=== PATIENT | female | born 1995 | race Caucasian/White ===

== ENCOUNTER → 2020-07-30 16:01 | Outpatient (CLI) | payer OTHER, SELFPAY ==
[2020-07-31 07:44] LABS: COVID19 Sendout Not Detected (Not Detect)
== END ==
PROVIDERS: Visit Provider Physician Assistant
DX: Z11.59 Encounter for screening for other viral diseases (principal)
CPT/HCPCS: 87635

== ENCOUNTER → 2020-08-02 14:49 | Outpatient (CLI) | payer OTHER, SELFPAY ==
--- NOTE | 2020-08-10 15:50 | PM.PFT.1 ---
Pulmonary Function Test Referral & Results Date Patient Seen: 08/02/20 Requesting provider: Chad Cummings Results: The spirometry demonstrates an FVC of 3.54 L which is 93% of predicted. The FEV1 was measured at 3.20 L which is 99% of predicted. The FEV1/FVC ratio was 91 which is 106% of predicted. Following the administration of bronchodilator there was no appreciable change to above normal numbers. Lung volumes show an SVC of 3.11 L which is 83% of predicted. The diffusing capacity was measured at 23.26 which is 95% of predicted. The maximum voluntary ventilation was normal Interpretation: This study demonstrates probably normal pulmonary function. There may be minimal reduction in lung volumes suggesting perhaps minimal restrictive lung disease but overall I would call this normal.
== END ==
PROVIDERS: Referring Provider Family Medicine; Visit Provider Family Medicine
DX: R05 Cough (principal); R06.2 Wheezing; R06.02 Shortness of breath
CPT/HCPCS: 94060; 94726; 94729

== ENCOUNTER → 2021-05-07 09:08 | Outpatient (CLI) | payer OTHER, SELFPAY ==
--- NOTE | 2021-05-07 | DI.US.S_ITS ---
PROCEDURE: US OB <= 14 WEEKS FETUS INDICATIONS: INITIAL SIZE AND DATING OUTSIDE/PRIOR DATING DATA: Last menstrual period (LMP): 03/13/2021. LMP-based estimated date of delivery (DARREL): 12/18/2021. First dating scan (date and location): 05/07/2021. Estimated date of delivery (DARREL) from first dating scan: 12/20/2021. TECHNIQUE: Real-time scanning was performed of the fetus and maternal pelvic organs, with image documentation. Endovaginal scanning was also performed to better visualize the fetus and maternal ovaries. COMPARISON: None. FINDINGS: Embryo: A single living intrauterine gestation is present with a heart rate of 150 beats per minute. [place]-rump length is 14 mm, corresponding to a 7 week 4 day gestation. Heart rate: 150 beats per minute Measurement variability in dating: +/- 4 weeks by LMP, +/- 7 days by mean sac diameter (use before 6 weeks gestation if crown-rump length not able to be measured), +/- 5 days by crown-rump length (up to 8 weeks 6 days gestation), +/- 7 days by crown-rump length (up to 13 weeks 6 days gestation). Maternal organs: Corpus luteal cyst on the right ovary. Left ovary within normal limits. IMPRESSION: 1. Single living early intrauterine gestation. Dictated by: Robb Young M.D. on 05/07/2021 at 11:33 Approved by: Robb Young M.D. on 05/07/2021 at 11:34
== END ==
PROVIDERS: PCP Family Medicine; Referring Provider Family Medicine; Visit Provider Family Medicine
DX: O34.81 Maternal care for other abnormalities of pelvic organs, first trimester (principal); N83.11 Corpus luteum cyst of right ovary; Z3A.01 Less than 8 weeks gestation of pregnancy
CPT/HCPCS: 76801; 76817

== ENCOUNTER → 2021-08-01 15:37 | Outpatient (CLI) | payer OTHER, SELFPAY ==
--- NOTE | 2021-08-01 15:41 | DI.US.S_ITS ---
PROCEDURE: US OB >= 14 WEEKS FETUS INDICATIONS: 20 week scan OUTSIDE/PRIOR DATING DATA: Last menstrual period (LMP): 03/13/2021 . LMP-based estimated date of delivery (DARREL): 12/18/2021 . First dating scan (date and location): 05/07/2021 . Estimated date of delivery (DARREL) from first dating scan: 12/20/2021 . TECHNIQUE: Real-time scanning was performed of the fetus, with image documentation and biometric measurements. COMPARISON: 05/07/2021 FINDINGS: General: A single living intrauterine gestation is present. Presentation: Variable Placenta: Placental position is anterior , without previa. Amniotic fluid index: 17.4 cm cm, normal range is 5-24 cm. heart rate: 145 beats per minute. Maternal cervical canal: 4.7 cm long. Normal lower limit is 2.5 cm. biometrics: Biparietal diameter: 4.7 cm 20 weeks 1 day Head circumference: 17.6 cm 20 weeks 0 days Abdominal circumference: 13.9 cm 19 weeks 2 days Femur length: 3.0 cm 19 weeks 2 days Estimated gestational age from initial scan: 19 weeks 6 days Composite gestational age from present scan: 19 weeks 5 days Estimated weight and percentile: 290 g, 22nd percentile Measurement variability for biometric dating: +/- 7 days from 14 weeks to 15 weeks 6 days gestation, +/- 10 days from 16 weeks to 21 weeks 6 days gestation, +/- 2 weeks from 22 weeks to 27 weeks 6 days gestation, +/- 3 weeks for 28 weeks gestation or later. weight reference: 4500 g or EFW >90/95% is considered macrosomia or large for gestational age. EFW <10% is small for gestational age. EFW 5% or less is considered intra-uterine growth restriction. Anatomic survey: Neuro: Ventricles are non-dilated at less than 10 mm. Cisterna magna is normal at 3-11 mm. Cerebellum is normal in size and morphology. Face: Nose and lips, facial profile are normal. Spine: No evidence for spina bifida. Heart: 4-chambered heart is present, with normal ventricular outflow tracts. Diaphragm: Diaphragm is intact. Stomach: Left-sided stomach is present. Kidneys: No hydronephrosis. Normal is less than 5 mm in 2nd trimester, less than 7 mm in 3rd trimester. Cord: 3-vessel cord has orthotopic insertion. Bladder: Normal in size. Extremities: All 4 extremities identified. Miscellaneous: Uterine fibroid is noted posteriorly measuring 1.9 x 1.4 x 1.8 cm. IMPRESSION: 1. Single live intrauterine as above. 2. Anatomy is within normal limits. Dictated by: Tarah Lobo M.D. on 08/02/2021 at 12:06 Approved by: Tarah Lobo M.D. on 08/02/2021 at 13:22
== END ==
PROVIDERS: PCP Family Medicine; Referring Provider Family Medicine; Visit Provider Family Medicine
DX: O34.12 Maternal care for benign tumor of corpus uteri, second trimester (principal); D25.9 Leiomyoma of uterus, unspecified; Z3A.19 19 weeks gestation of pregnancy
CPT/HCPCS: 76811

== ENCOUNTER → 2021-11-27 12:11 | Outpatient (ROUT) | payer OTHER, SELFPAY | PROVIDERS: PCP Family Medicine; Visit Provider Family Medicine | DX: Z36.85 Encounter for antenatal screening for Streptococcus B (principal) | CPT/HCPCS: 87081; 87147 ==

== ENCOUNTER 2021-11-29 09:16 | Observation (INO) | payer OTHER, SELFPAY ==
--- NOTE | 2021-11-29 11:56 | DI.US.S_ITS ---
PROCEDURE: US OB LIMITED INDICATIONS: BLEEDING. AMNIOTIC FLUID CHECK. OUTSIDE/PRIOR DATING DATA: Last menstrual period (LMP): March 13, 2021 LMP-based estimated date of delivery (DARREL): December 18, 2021. First dating scan (date and location): May 07, 2021. Estimated date of delivery (DARREL) from first dating scan: December 20, 2021. The calculations are made using the ultrasound DARREL of December 20, 2021. TECHNIQUE: Real-time scanning was performed of the fetus, with image documentation. Endovaginal scanning: Not performed COMPARISON: None. FINDINGS: A single living intrauterine gestation is present. Presentation: Vertex. Placenta: Placental position is anterior, without previa. No evidence to suggest placenta abruption. Amniotic fluid index: 12.0 cm, normal range is 5-24 cm. Single deepest vertical pocket is 5.0 cm. heart rate: 157 beats per minute. Maternal cervical canal: Maternal cervix is not well imaged secondary to advanced gestational age and presentation. Clinically estimated gestational age: 37 weeks and 0 days IMPRESSION: Single living intrauterine gestation with estimated gestational age of approximately 37 weeks and 0 days. Normal four-quadrant ADAN of 12 cm with largest vertical pocket measuring 5.0 cm. No sonographic evidence for placenta previa or placental abruption. Dictated by: Anthony Currie M.D. on 11/29/2021 at 12:47 Approved by: Anthony Currie M.D. on 11/29/2021 at 12:50
== END 2021-11-29 11:25 | disposition home or self-care (01) ==
PROVIDERS: Admitting Provider Family Medicine; PCP Family Medicine; Referring Provider Family Medicine; Visit Provider Family Medicine
DX: O47.1 False labor at or after 37 completed weeks of gestation (principal); O46.93 Antepartum hemorrhage, unspecified, third trimester; Z3A.37 37 weeks gestation of pregnancy
CPT/HCPCS: 59025; 59050; 76815; 84112; 87210; G0378; G0379

== ENCOUNTER 2021-12-02 03:30 | Inpatient (IN) | payer OTHER, SELFPAY ==
--- NOTE | 2021-12-02 04:48 | PM.OBHP.IH.1 ---
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 no other medical issues prior to Desires natural childbirth no epidural care unremarkable except for GBS positive, also one presentation 2 days ago for bleeding after sex with friable cervix on sterile speculum exam, no uterine bleeding, normal ADAN, cat 1 tracing with good movement care: good care Dating criteria OB: LMP confirmed by 1st trimester US Ultrasounds: normal 1st trimester US and normal mid trimester US Obstetrical complications: other Narrative: Began having contractions at this morning some mild bleeding baby still moving found to be dilated to 8cm on exam does not think bag has ruptured yet Preadmission Labs Last OB Lab Results: Blood Type O Positive 12/02/21 04:20 12/02/21 Antibody Screen Negative 12/02/21 04:20 12/02/21 Hematocrit 39.1 % (36-46) 12/02/21 04:20 12/02/21 Hemoglobin 13.5 g/dL (12.0-16.0) 12/02/21 04:20 12/02/21 Glucose Tolerance Testin hr (wnl) -: Chlamydia screen: negative and Gonorrhea screen: negative -: PAP smear: Normal External Labs Blood type OB HPI: O (+) positive Narrative: unremarkable labs and studies except for GBS swab positive. 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 Smoking Status: Never smoker Type(s) of exercise: walking Meds Home Medications and Allergies Home Medications Medication Instructions Recorded Confirmed Type vits no.126-ferrous fum 1 tab PO DAILY 12/02/21 12/02/21 History 28 mg iron-folic acid 800 mcg tablet (Classic ) Allergies Allergy/AdvReac Type Severity Reaction Status Date / Time No Known Drug Allergies Allergy Unverified 07/30/20 16:38 Review of Systems Review of Systems Narrative: all systems reviewed and negative except as otherwise documented in the HPI OB Exam Narrative Exam Narrative: sitting in pilar position vibing between contractions HENMT Head: normal to inspection, normocephalic and atraumatic Eyes General: appearance normal, both eyes and all related structures Resp Effort & Inspection: normal respiratory effort Auscultation: clear to auscultation bilaterally Cardio Rate: regular rate Rhythm: regular rhythm Heart Sounds: S1 normal and S2 normal Extremities Lower extremity: Yes normal to inspection GI Auscultation: normal bowel sounds Other: 10cm with a lip, 1+ station Objective Labs Result Diagrams: 12/02/21 04:20 Assessment and Plan Assessment and Plan Assessment and Plan narrative: #Primigravida in active labor Will admit for expectant management Does NOT desire epidural plan 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
[2021-12-02 04:49] LABS: Add Manual Diff / Slide Review NO; Basophils Absolute Auto 100 /uL (0-100); Eosinophils Absolute Auto 0 /uL (0-450); Eosinophils Percent Auto 0.4 % (2-4); Hematocrit 39.1 % (36-46); Hemoglobin 13.5 g/dL (12.0-16.0); Lymphocytes Absolute Auto 1800 /uL (1100-4500); Lymphocytes Percent Auto 15.6 % (25-40); Mean Corpuscular HGB Conc 34.6 % (30-36); Mean Corpuscular Hemoglobin 29.2 PG (26-34); Mean Corpuscular Volume 84.5 fL (80-100); Monocytes Absolute Auto 700 /uL (0-900); Neutrophils Absolute Auto 8700 /uL (1500-7000); Platelet Count 181 X10^3/uL (150-400); Red Blood Cell Count 4.62 X10^6/uL (4.0-5.2); Red Cell Distribution Width 13.7 % (11.6-14.8); White Blood Cell Count 11.3 X10^3/uL (4.5-11.0)
[2021-12-02] MEDS: PENICILLIN G POTASSIUM 5,000,000 UNIT in DEXTROSE 5% IN WATER 250 ML IV (04:54)
[2021-12-02] MEDS: LACTATED RINGERS 1,000 ML 100 ML IV (04:55)
[2021-12-02 04:58] LABS: COVID19 -Nasal RAPID Negative (Negative)
[2021-12-02 05:20] VITALS: BP 130/59
[2021-12-02] MEDS: OXYTOCIN PREMIX 30 UNIT/500 ML PLAST..BAG 200 UNIT IV (07:35)
--- NOTE | 2021-12-02 07:40 | PM.OBPRVD ---
Labor & Delivery Delivery date: 12/02/21 Intrapartal Events: None Cervical ripening method: none Induction method: none Delivery monitor: external FHT Route of delivery: L&D Laceration Description: Vaginal - 1st Degree Estimated blood loss (mL): 100 Complications: none Narrative: spontaneous natural delivery. penicillin running IV intrapartum for GBS positive status [place] Baby 1: gender: Male Presentation: vertex Position: Occiput Posterior Placenta delivery description: Spontaneous Cord Vessel Description: 3 Vessels score (1 min): 3 score (5 min): 8 score (10 min): 9 weight: 2.041 kg Narrative: nuchal cord x1, 3 vessel cord, required some O2 to get sats up initially Plan for aftercare: Routine care
[2021-12-02] MEDS: IBUPROFEN 600 MG TABLET PO ×2 (14:31→20:35)
[2021-12-02] MEDS: ACETAMINOPHEN 325 MG TABLET 650 MG PO ×2 (14:32→20:35)
[2021-12-03] MEDS: IBUPROFEN 600 MG TABLET PO ×2 (13:32→20:02)
--- NOTE | 2021-12-03 17:16 | P.PN_ITS ---
Subjective Subjective Date Patient Seen: 12/03/21 Time Patient Seen: 17:16 Interval history: day 1. Status post a normal spontaneous vaginal delivery. Patient is doing great without any complaints. Breast-feeding is going well. Baby was sleepy initially and had some sugar instability but that has resolved and he now he is quite a vigorous breast feeder. Patient's pain is being managed with ibuprofen. She is not having any significant bleeding. Otherwise she denies any complaints Exam Narrative Exam Narrative: Afebrile vital signs are stable Chest: Clear to auscultation Cor: Regular rate and rhythm without a murmur Abdomen: Positive bowel sounds, soft, nontender. 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 Status post normal spontaneous vaginal delivery Plan: Continue routine care with vitamins daily and probiotics due to antibiotics intrapartum. Will go home with baby likely tomorrow depending on how baby does. Continue with Motrin as needed for pain. Assessment 2. O positive Assessment 3. GBS positive, status post 1 dose of IV antibiotics. Plan: She can take her home probiotics Time Spent With Patient Critical Care time: I spent a total of [] minutes of critical care time on this patient's care today; this time is exclusive of procedural time.
[2021-12-04] MEDS: IBUPROFEN 600 MG TABLET PO ×2 (02:20→11:15)
--- NOTE | 2021-12-04 09:01 | PM.DS.1 ---
History of Present Illness History of Present Illness Date Patient Seen: 12/04/21 Time Patient Seen: 09:01 Date of Onset of Symptoms: 12/02/21 Chief complaint: Labor Narrative: PDD 2 s/p on 12/02/21 doing well eating normal diet her milk is starting to come in she is up and walking and eliminating without issue. No pain, bleeding is mild and diminishing. Discharge Providers Provider Date of admission: 12/02/21 03:30 Discharge Date: 12/04/21 Primary care physician: Diego Salcedo MD Consults: 12/03/21 07:38 Consult to Director Regulatory Affairs Routine Comment: Discharge provider: Diego Salcedo MD Summary Hospital Course Discharge Diagnosis: #primigravida in labor # care Hospital Course: Ms. Magana did well after unassisted childbirth which began spontaneously. she declined anesthesia and did receive intrapartum penicillin G IV d/t positive GBS swab. She had no lacerations. She is . 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 Const General: cooperative, healthy appearing and comfortable HENMT Head: normal to inspection, normocephalic and atraumatic Cardio Rate: regular rate Rhythm: regular rhythm Heart Sounds: S1 normal and S2 normal GI Inspection: normal to inspection Palpation: soft Auscultation: normal bowel sounds Other: firm small uterus nontender Neuro General: patient alert, patient awake, patient oriented x3, moves all extremities and CN's II-XI intact bilaterally Extrem Other: no pedal edema Psych Appearance: grossly normal Mental Status: mental status grossly normal Speech and Movement: speech and movement normal Mood: congruent mood Affect: normal affect Attitude: cooperative Objective Labs Result Diagrams: 12/02/21 04:20 [facility] Social History (Updated 12/02/21 @ 05:02 by Diego Salcedo MD) marital status: number of children: 0 household members: spouse lives independently: Yes education level: master's degree occupational status: employed 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 Smoking Status: Never smoker Type(s) of exercise: walking Discharge Assessment & Plan Assessment and Plan Assessment: #primigravida in active labor presented at 8cm now doing well will f/u with PCP (me) in 2 weeks support provided Dispo: home Discharge Plan Discharge Plan Patient Disposition: Home Discharge orders & Medications Prescriptions: Continued Classic 28 mg iron- 800 mcg tablet 1 tab PO DAILY 0RF Label Comments: take 1 tablet by mouth once daily Follow up/Referrals: Diego Salcedo MD [Primary Care Provider] - Diet/Activity/Treatments Diet: Regular Visit Report/Discharge Packet Instructions: Labor and Delivery, Vaginal , DI for Labor and Delivery, Vaginal Discharge Data Primary Care Provider: Diego Salcedo
[2021-12-04 11:05] VITALS: BP 113/58; PULSE 82; RESP 16; TEMP 36.8
[2021-12-04 12:34] VITALS: BP 114/49; PULSE 96; RESP 16; TEMP 36.8
== END 2021-12-04 12:45 | disposition home or self-care (01) | DRG 807 ==
PROVIDERS: Admitting Provider Family Medicine; PCP Family Medicine; Referring Provider Family Medicine; Visit Provider Family Medicine
DX: O99.824 Streptococcus B carrier state complicating childbirth (principal); Z37.0 Single live birth; Z3A.37 37 weeks gestation of pregnancy; Z20.822 Contact with and (suspected) exposure to COVID-19; O69.81X0 Labor and delivery complicated by cord around neck, without compression, not applicable or unspecified
CPT/HCPCS: 36415; 59050; 85025; 86850; 86900; 86901; 87635; C9803; G0379; J2540; J2590

== ENCOUNTER → 2023-04-16 08:42 | Outpatient (CLI) | payer OTHER, SELFPAY ==
--- NOTE | 2023-04-16 | DI.US.S_ITS ---
PROCEDURE: US PELVIC COMPLETE INDICATIONS: ENCOUNTER FOR ROUTINE CHECKING OF INTRAUTERINE CONTRACEPTIVE TECHNIQUE: Real-time scanning was performed of the pelvic organs, with image documentation. Additional endovaginal scanning was necessary due to incomplete visualization of the adnexal and endometrial structures by transabdominal scanning. COMPARISON: None. FINDINGS: Uterus: Uterus is anteverted and normal in size at 7.4 x 3.6 x 4.8 cm. The myometrium is homogeneous. The endometrium measures 2-3 mm combined thickness. The IUD is seen at its expected location. Ovaries: The right ovary measures 2.2 x 1.9 x 1.9 cm, with a calculated ovarian volume of 4.5 cc. Less than 12 follicles can be seen involving the right ovary. The left is not seen. No adnexal masses are seen on either side. Other: A mild amount of free pelvic fluid is seen, which is considered to be within physiologic limits. IMPRESSION: The IUD is seen at its expected location. Nonvisualization of the left ovary. The right ovary is unremarkable. We strive to produce accurate, complete, and clear reports of imaging services. To assist us in improving patient care, this report was composed using standard report templates and voice recognition software. Therefore, it may contain abnormal punctuation, insertions and/or omissions. Occasional wrong-word or sound-alike substitutions may occur. Though we review the report and make efforts to correct it, we do recommend that the report be read carefully in proper context to recognize any text inaccuracies. Dictated by: Wade Roy M.D. on 04/16/2023 at 13:28 Approved by: Wade Roy M.D. on 04/16/2023 at 13:29
== END ==
PROVIDERS: PCP Family Medicine; Referring Provider Internal Medicine; Visit Provider Internal Medicine
DX: T83.32XA Displacement of intrauterine contraceptive device, initial encounter
CPT/HCPCS: 76830; 76856

== ENCOUNTER → 2023-12-17 09:15 | Outpatient (CLI) | payer OTHER, SELFPAY ==
--- NOTE | 2023-12-17 09:18 | DI.RAD.S_ITS ---
PROCEDURE: XR KNEE RT 3V INDICATIONS: ACUTE PAIN RIGHT KNEE TECHNIQUE: 3 views of the knee were acquired. COMPARISON: None. FINDINGS: Bones: No fractures or dislocations. No suspicious bony lesions. Small suprapatellar enthesophyte. Soft tissues: No joint effusion. No suspicious soft tissue calcifications. IMPRESSION: No acute bony abnormality or significant effusion. If symptoms persist with conservative management, consider cross-sectional imaging such as CT or MRI. Approved by: Johanny Ribera M.D. on 12/17/2023 at 11:25
--- NOTE | 2023-12-17 09:29 | DI.RAD.S_ITS ---
PROCEDURE: XR KNEE LT 1TO2V INDICATIONS: KNEE PAIN TECHNIQUE: 1 views of the knee were acquired. COMPARISON: None. FINDINGS: Bones: No fractures or dislocations. No suspicious bony lesions. Sclerotic 7 millimeter focus with narrow zone of transition in the medial distal femoral condyle. 3 millimeter lucency at the distal femoral metadiaphysis. Soft tissues: No joint effusion. No suspicious soft tissue calcifications. IMPRESSION: No acute osseous abnormality. Single AP radiographic view demonstrates distal medial femoral condyle 7 millimeter sclerotic focus and 3 millimeter distal femoral metadiaphysis lucency. Findings are indeterminate. Recommend complete left knee radiographic series for further evaluation. Approved by: Johanny Ribera M.D. on 12/17/2023 at 11:34
== END ==
PROVIDERS: PCP Family Medicine; Referring Provider Registered Nurse; Visit Provider Registered Nurse
DX: M25.561 Pain in right knee (principal)
CPT/HCPCS: 73560; 73562